=== PATIENT | female | born 1955 | race Caucasian/White ===

== ENCOUNTER 2019-01-09 10:30 | Inpatient (IN) | payer OTHER ==
[~2019-01-09] VITALS: Ht 149.9 cm; Wt 60.1 kg
[2019-01-23] VITALS (28 sets, daily range): BP systolic 91–138; BP diastolic 50–67; PULSE 54–89; RESP 11–20; Ht 149.9 cm; Wt 60.1 kg
[2019-01-23] MEDS ORDERED: HYDR25TA6 PO (09:11)
[2019-01-23] MEDS ORDERED: SIMV20TA PO (09:12)
[2019-01-23] MEDS ORDERED: PANT40TA3 PO (09:12)
[2019-01-23] MEDS ORDERED: MONT10TA24 PO (09:12)
[2019-01-23] MEDS ORDERED: ACETAMINOPHEN 1000MG/100ML IV 100 ML ONE (09:25)
--- NOTE | 2019-01-23 09:43 | PREAC ---
Date/Time of Note Date/Time of Note DATE: 01/23/19 TIME: 09:42 Anesthesia Eval and Record Evaluation Time Pre-Procedure Interview DATE: 01/23/19 TIME: 09:42 Age 63 Sex female NPO: 8 hrs Preoperative diagnosis Left Knee OA Planned procedure Left Total Knee Arthroplasty Past Medical History Past Medical History: Includes Cardio: HTN, Dyslipidemia Musculoskeletal: Osteoarthritis Surgery & Anesthesia Issues No known issue Meds Anticoagulation: No Beta Ramon within 24 hr: No Reason Beta Ramon not given: Pt. not on B-Ramon Reported Medications Montelukast Sodium* (Montelukast Sodium*) 10 Mg Tablet, 10 MG PO QHS, #30 TAB 01/23/19 Pantoprazole* (Protonix*) 40 Mg Tablet.dr, 40 MG PO DAILY, TAB 01/23/19 Simvastatin* (Zocor*) 20 Mg Tablet, 20 MG PO QHS, #30 TAB 01/23/19 Hydrochlorothiazide* (Hydrochlorothiazide*) 25 Mg Tab, 25 MG PO DAILY, #30 TAB 01/23/19 Current Medications Lactated Ringer's 1,000 ml @ 125 mls/hr Q8H IV ; Start 01/23/19 at 10:30; Stop 01/23/19 at 18:29 Cefazolin Sodium 50 ml @ 100 mls/hr PRE-OP ONCE IVPB ; Start 01/23/19 at 10:30; Stop 01/23/19 at 10:59 Tranexamic Acid 100 ml @ 220 mls/hr PRE-OP ONCE IVPB ; Start 01/23/19 at 10:30; Stop 01/23/19 at 10:57 Tranexamic Acid 100 ml @ 200 mls/hr INTRA-OP ONCE IVPB ; Start 01/23/19 at 10:30; Stop 01/23/19 at 10:59 Oxycodone HCl (Oxycontin) 10 mg PRE-OP ONCE PO Last administered on 01/23/19at 09:29; Admin Dose 10 MG; Start 01/23/19 at 10:30; Stop 01/23/19 at 10:31 Lansoprazole (Prevacid) 30 mg PRE-OP ONCE PO Last administered on 01/23/19at 09:29; Admin Dose 30 MG; Start 01/23/19 at 10:30; Stop 01/23/19 at 10:31 Ondansetron HCl (Zofran Inj) 4 mg PRE-OP ONCE IV Last administered on 01/23/19at 09:28; Admin Dose 4 MG; Start 01/23/19 at 10:30; Stop 01/23/19 at 10:31 Dexamethasone (Decadron) 8 mg PRE-OP ONCE IV Last administered on 01/23/19at 09:29; Admin Dose 8 MG; Start 01/23/19 at 10:30; Stop 01/23/19 at 10:31 Ropivacaine/ Morphine Sulfate/ Clonidine/ Epinephrine/ Ketorolac Tromethamine/ Vancomycin HCl/ Sodium Chloride INTRA-OP INJ ; Start 01/23/19 at 17:30; Stop 01/23/19 at 23:00 Acetaminophen 100 ml @ 400 mls/hr ONCE IVPB Last administered on 01/23/19at 09:30; Admin Dose 400 MLS/HR; Start 01/23/19 at 10:30; Stop 01/23/19 at 10:31 Meds reviewed: Yes Allergies Coded Allergies: No Known Allergy (Unverified , 01/23/19) Allergies Reviewed: Yes Labs/Studies Labs Reviewed: Reviewed by anesthesiologist test: N/A Studies: ECG (n/a), CXR (n/a) Pre-procedure Exam Last vitals Vital Signs Date Temp Pulse Resp B/P (MAP) Pulse Ox O2 O2 Flow FiO2 Time Delivery Rate 01/23/19 97.9 09:30 Airway: Adequate mouth opening, Adequate thyromental dist Mallampati: Mallampati II Teeth: Normal Lung: Normal Heart: Normal ASA Physical Status ASA physical status: 2 Emergency: None Planned Anesthetic General/MAC: ETT, LMA Neuraxial: Spinal Nerve block: Femoral (left) Planned Pain Management Sub-arachniod narcotics, Single shot nerve block, Parenteral pain med Pre-operative Attestations Prior to commencing anesthesia and surgery, the patient was re-evaluated, there was verification of: *The patient's identity *The results of appropriate recent lab work and preoperative vital signs *The above evaluation not changing prior to induction *Anesthetic plan, risk benefits, alternative and complications discussed with patient/family; questions answered; patient/family understands, accepts and wishes to proceed. FE WEISS MD Jan 23, 2019 09:43
[2019-01-23] MEDS ORDERED: MIDAZOLAM 1 MG/ML 2 ML INJ ONE (09:50)
[2019-01-23] MEDS ORDERED: PROPOFOL 100 ML ONE (09:50)
[2019-01-23] MEDS ORDERED: morphine SULFATE/PF (10 MG/10 ML) INJ ONE (09:50)
[2019-01-23] MEDS ORDERED: CEFAZOLIN 1 GM INJ ONE (09:50)
[2019-01-23] MEDS ORDERED: EPHEDrine 25 MG/5 ML SYG ONE (09:50)
[2019-01-23] MEDS ORDERED: ROPIVACAINE 0.5 % 30 ML VIAL ONE (09:51)
[2019-01-23] MEDS ORDERED: LANSOPRAZOLE 30 MG CAP PO ONE (10:30)
[2019-01-23] MEDS ORDERED: CEFAZOLIN 1 GM/50 ML (PMX) 50 ML IVPB ONE (10:30)
[2019-01-23] MEDS ORDERED: LACTATED RINGER'S 1,000 ML IV SCH (10:30)
[2019-01-23] MEDS ORDERED: DEXAMETHASONE 4 MG/ML 1 ML INJ IV ONE (10:30)
[2019-01-23] MEDS ORDERED: oxyCODONE (CR) 10 MG TAB [oxyCONTIN] PO ONE (10:30)
[2019-01-23] MEDS ORDERED: ACETAMINOPHEN 1000MG/100ML IV 100 ML IVPB SCH (10:30)
[2019-01-23] MEDS ORDERED: TRANEXAMIC ACID 1GM/100ML(PMX) 100 ML INTRA-OP X1 IVPB ONE (10:30)
[2019-01-23] MEDS ORDERED: TRANEXAMIC ACID 1GM/100ML(PMX) 100 ML PRE-OP X1 IVPB ONE (10:30)
[2019-01-23] MEDS ORDERED: ONDANSETRON 4 MG INJ IV ONE (10:30)
--- NOTE | 2019-01-23 11:07 | HPN ---
Date/Time of Note Date/Time of Note DATE: 01/23/19 TIME: 11:07 Interval H&P Admission Note Pt. seen H&P reviewed: No system changes ROOPA ANDRADE MD Jan 23, 2019 11:07
[2019-01-23] MEDS ORDERED: TRANEXAMIC ACID 1GM/100ML(PMX) 200 ML ONE (12:25)
[2019-01-23] MEDS ORDERED: POLYMYXIN B 500000 UNIT INJ ONE (12:33)
[2019-01-23] MEDS ORDERED: METOCLOPRAMIDE 10 MG INJ ONE (12:45)
[2019-01-23] MEDS ORDERED: DEXAMETHASONE 4 MG/ML 5 ML INJ ONE (12:45)
[2019-01-23] MEDS ORDERED: ONDANSETRON 4 MG INJ ONE (12:45)
[2019-01-23] MEDS ORDERED: KETOROLAC 30 MG INJ ONE (12:46)
[2019-01-23] MEDS ORDERED: NALOXONE (0.4 MG/ML) INJ IV PRN ×2 (13:00→14:30)
[2019-01-23] MEDS ORDERED: METOCLOPRAMIDE 10 MG INJ IV PRN (13:00)
[2019-01-23] MEDS ORDERED: NALBUPHINE HCL (10 MG/1 ML) INJ IV PRN (13:00)
[2019-01-23] MEDS ORDERED: OXYCODONE/ACETAMINOPHEN (5/325) TAB PO PRN (13:00)
[2019-01-23] MEDS ORDERED: LABETALOL HCL 20MG INJ IV PRN (13:00)
[2019-01-23] MEDS ORDERED: FENTAnyl 50 MCG/ML VIAL IV PRN ×2 (13:00)
[2019-01-23] MEDS ORDERED: HYDROmorphONE 0.5 MG/0.5 ML SYG IV PRN ×2 (13:00)
[2019-01-23] MEDS ORDERED: ACETAMINOPHEN 500 MG TAB PO PRN (13:00)
[2019-01-23] MEDS ORDERED: ALBUMIN HUMAN 5% 250 ML IV PRN (13:00)
[2019-01-23] MEDS ORDERED: ONDANSETRON 4 MG INJ IV PRN ×2 (13:00)
[2019-01-23] MEDS ORDERED: morphine 2 MG INJ IV PRN ×2 (13:00)
[2019-01-23] MEDS ORDERED: EPHEDrine 25 MG/5 ML SYG IV PRN (13:00)
[2019-01-23] MEDS ORDERED: DIPHENHYDRAMINE 50 MG INJ IV PRN ×2 (13:00)
[2019-01-23] MEDS ORDERED: HYDROCODONE/APAP (5/325) TAB PO PRN (13:00)
[2019-01-23] MEDS ORDERED: HYDROmorphONE 1 MG/5 ML IV SYRINGE IV PRN ×2 (13:00)
[2019-01-23] MEDS ORDERED: MEPERIDINE 25 MG INJ IV PRN (13:00)
[2019-01-23] MEDS ORDERED: KETOROLAC 30 MG INJ IV PRN (13:00)
[2019-01-23] MEDS ORDERED: ROCURONIUM 50 MG INJ ONE (13:04)
[2019-01-23] MEDS ORDERED: SUCCINYLCHOLINE CHLORIDE 100 MG/5 ML SYG IV ONE (13:04)
[2019-01-23] MEDS ORDERED: BACITRACIN 50000 UNITS INJ IRR ONE (13:04)
[2019-01-23] MEDS ORDERED: NEOSTIGMINE 3 MG/3 ML SYRINGE ONE (13:42)
[2019-01-23] MEDS ORDERED: GLYCOPYRROLATE 0.4 MG INJ ONE (13:42)
--- NOTE | 2019-01-23 14:02 | SIPON ---
Date/Time of Note Date/Time of Note DATE: 01/23/19 TIME: 14:01 Operative Report Preoperative Diagnosis Left Knee Osteoarthritis Postoperative Diagnosis Same Operation/Procedure Performed Left Total Knee Arthroplasty Surgeon Lisa Hummel MD veterinary assistant technician MADALYN Wagoner Anesthesia: spinal Estimated blood loss: other Transfusion Required none Specimen Bone Grafts/Implants none Complications none LISA HUMMEL MD Jan 23, 2019 14:02
--- NOTE | 2019-01-23 14:06 | OPR ---
Date/Time of Note Date/Time of Note DATE: 01/23/19 TIME: 14:02 Operative Report Free Text/Dictation DATE OF OPERATION: January 23, 2019 SURGEON: Roopa Andrade MD DECISION SCIENCE ANALYST: MADALYN Wagoner PREOPERATIVE DIAGNOSIS: Left knee osteoarthritis. POSTOPERATIVE DIAGNOSIS: Left knee osteoarthritis. PROCEDURES PERFORMED: Left total knee arthroplasty, CPT code 75824. ANESTHESIOLOGIST: Dr. Marshall ANESTHESIA: Spinal. ESTIMATED BLOOD LOSS: 300 mL. COMPLICATIONS: None. SPECIMENS: Resected bone. DISPOSITION: PACU in stable condition. TOURNIQUET TIME: 42 minutes at 250 mmHg. IMPLANT USED: Ulloa and Nephew size 2 Karen tibial baseplate, size 3 standard posterior stabilized Oxinium femur, size 11 high flexion polyethylene, size 35 mm patella. INDICATION FOR PROCEDURE: This is an 63-year-old female with end-stage osteoarthritis of the left knee who had failed nonoperative management. Risks, benefits, alternatives of surgical intervention were discussed with the patient and informed consent was obtained. The risks of surgery include but are not limited to infection, deep venous thrombosis, pulmonary embolism, damage to nerves and blood vessels, numbness around incision site, stiffness of knee, need for total knee manipulation under anesthesia, need for blood transfuion, heart attack, stroke, risks associated with anesthesia, implant loosening, wear of prosthesis, need for revision surgery, and . DESCRIPTION OF PROCEDURE: The patient was met in the preoperative suite. The correct operative site was confirmed and marked. The patient was then brought into operating room. After induction of anesthesia, the patient was placed in the supine position on the operating room table. A tourniquet was applied to left upper thigh. The left lower extremity was prepped and draped in the usual sterile fashion. Before starting, a timeout was taken to identify the correct operative site and confirm preoperative antibiotics consisting of 1 g of IV Ancef, along with 1 g of tranexamic acid were administered. At this point, the left leg was elevated and exsanguinated with an Esmarch and tourniquet was then insufflated for the above noted time. A midline incision was made and median parapatellar arthrotomy was then completed. The lateral patellar retinacular ligaments were released. A sleeve of tissue was released from the medial proximal tibia. The cruciate ligaments and the menisci were then excised. At this point, the custom distal femur cutting block was then pinned and 9.5 mm was resected from the distal femur. The 4-in-1 cutting block, size 3 was then placed. An jose wing was used to confirm that notching of the anterior cortex of the femur would not occur. The anterior and posterior condylar cuts were completed followed by the anterior and posterior chamfer cuts. The osteophytes were then removed with a rongeur. At this point, the tibia was subluxed anteriorly. Appropriate retractors were placed. The custom tibial cutting block was then pinned. The drop was used to ensure the correct alignment. Approximately 11.5 mm was resected off the lateral tibial plateau and 6 mm off the medial tibial plateau. Osteophytes were then removed. At this point, the flexion extension gaps were checked with a 9 mm gap raspberry checker and noted to be loose in both. Next, trial 3 standard femur was then pinned and the box cut was then completed. The tibia was then subluxed anteriorly and measured to size 2. The tibial tray was then pinned and a keel was then punched. The trial components were placed with a 11 mm polyethylene and noted to have full extension and greater than 120 degrees of flexion. The patella was then subluxed laterally and sized to 24 mm. Approximately, 9 mm was resected. The patellar was sized to a 35 mm. The button was placed and noted to have excellent patellar tracking. The trial components were removed. All bony surfaces were pulse lavaged and dried. The appropriate size components were then cemented and the knee was held in extension with a 11 mm trial polyethylene until the cement cured. Once the cement had cured, the trial polyethylene was removed and the appropriate size polyethylene was then placed. The tranexamic acid was redosed. The cocktail was then injected. The extensor mechanism was closed using #1 Stratafix and the subcutaneous tissue with 2-0 Vicryl and the skin with 4-0 Monocryl. Steri-Strips were applied along with a sterile dressing. There were no complications. The patient was transferred to PACU in stable condition. POSTOPERATIVE CARE: The patient will be weightbearing as tolerated. The pat ient will work with physical therapy, and will receive two additional doses of IV antibiotics along with aspirin 81 mg p.o. b.i.d. for 6 weeks. Upon discharge, patient will follow up in my office within 2 weeks postoperatively. ROOPA ANDRADE MD Jan 23, 2019 14:06
--- NOTE | 2019-01-23 14:19 | PAC ---
Date/Time of Note Date/Time of Note DATE: 01/23/19 TIME: 14:18 Post-Anesthesia Notes Post-Anesthesia Note Last documented vital signs Vital Signs Date Temp Pulse Resp B/P (MAP) Pulse Ox O2 O2 Flow FiO2 Time Delivery Rate 01/23/19 99.2 62 16 138/66 98 Room Air 14:16 (90) Activity: WNL Respiratory function: WNL Cardiovascular function: WNL Mental status: Baseline Pain reasonably controlled: Yes Hydration appropriate: Yes Nausea/Vomiting absent: Yes FE WEISS MD Jan 23, 2019 14:19
[2019-01-23] MEDS ORDERED: oxyCODONE 5 MG TAB PO PRN (14:30)
[2019-01-23] MEDS ORDERED: DOCUSATE SODIUM 100 MG CAP PO ONE (14:30)
[2019-01-23] MEDS ORDERED: NACL 0.9% 3 ML SYG IV SCH (14:30)
[2019-01-23] MEDS ORDERED: SENNA/DOCUSATE NA (8.6MG/50MG) TAB PO PRN (14:30)
[2019-01-23] MEDS ORDERED: NA PHOSPHATE/BIPHOS 133 ML ENEMA PR PRN (14:30)
[2019-01-23] MEDS ORDERED: KETOROLAC 15 MG INJ IV PRN (14:30)
[2019-01-23] MEDS ORDERED: MAGNESIUM HYDROXIDE 30ML CUP PO PRN (14:30)
[2019-01-23] MEDS ORDERED: BISACODYL 10 MG SUPP PR PRN (14:30)
[2019-01-23] MEDS: CEFAZOLIN 2 GM/50 ML (PMX) 50 ML IVPB SCH ×2 (14:54→23:44)
[2019-01-23] MEDS ORDERED: HIP PAIN COCKTAIL VANCO INJ SCH ×7 (17:30)
--- NOTE | 2019-01-23 18:19 | CONS ---
Assessment/Plan Assessment/Plan Hospital Course (Demo Recall) 63 yo female with OA, HLD, HTN who is POD0 for TKA. We have been consulted for medical-comanagement - Ok to continue home meds in post-operative period - DVT ppx - PT/OT - Diet as tolerated - Analgesia Consultation Date/Type/Reason Admit Date/Time Jan 23, 2019 at 08:01 Date/Time of Note DATE: 01/23/19 TIME: 18:17 Hx of Present Illness 63 yo female wtih h/o HLD and hypertension who is POD0 for TKA. We have been asked to follow for medication co-management Doing well currently. mild pain Constitutional: no complaints, improved Eyes: no complaints ENT: no complaints Respiratory: no complaints Cardiovascular: no complaints Gastrointestinal: no complaints Genitourinary: no complaints Musculoskeletal: no complaints Skin: no complaints Neurologic: no complaints Endocrine: no complaints Lymphatic: no complaints Psychological: no complaints, nl mood/affect Immunologic: no complaints Past Medical History Medical History: no pertinent history Home Meds Reported Medications Montelukast Sodium* (Montelukast Sodium*) 10 Mg Tablet, 10 MG PO QHS, #30 TAB 01/23/19 Pantoprazole* (Protonix*) 40 Mg Tablet.dr, 40 MG PO DAILY, TAB 01/23/19 Simvastatin* (Zocor*) 20 Mg Tablet, 20 MG PO QHS, #30 TAB 01/23/19 Hydrochlorothiazide* (Hydrochlorothiazide*) 25 Mg Tab, 25 MG PO DAILY, #30 TAB 01/23/19 Medications Current Medications Ropivacaine/ Morphine Sulfate/ Clonidine/ Epinephrine/ Ketorolac Tromethamine/ Vancomycin HCl/ Sodium Chloride INTRA-OP INJ ; Start 01/23/19 at 17:30; Stop 01/23/19 at 23:00 Hydromorphone HCl (Dilaudid) 0.2 mg PACU PRN IV MILD PAIN 1-3; Start 01/23/19 at 13:00; Stop 01/23/19 at 20:00 Hydromorphone HCl (Dilaudid) 0.4 mg PACU PRN IV MOD PAIN 4-6; Start 01/23/19 at 13:00; Stop 01/23/19 at 20:00 Fentanyl (Sublimaze) 25 mcg PACU ORDER PRN IV MILD PAIN 1-3; Start 01/23/19 at 13:00; Stop 01/23/19 at 20:00 Fentanyl (Sublimaze) 50 mcg PACU ORDER PRN IV MOD PAIN 4-6; Start 01/23/19 at 13:00; Stop 01/23/19 at 20:00 Oxycodone/ Acetaminophen (Percocet (5/ 325)) 1 tab PACU ORDER PRN PO .PAIN 1-5; Start 01/23/19 at 13:00; Stop 01/23/19 at 20:00 Ondansetron HCl (Zofran Inj) 4 mg PACU ORDER PRN IV NAUSEA/VOMITING; Start 01/23/19 at 13:00; Stop 01/23/19 at 20:00 Metoclopramide HCl (Reglan) 10 mg PACU ORDER PRN IV NAUSEA/VOMITING; Start 01/23/19 at 13:00; Stop 01/23/19 at 20:00 Labetalol HCl (Labetalol) 5 mg PACU ORDER PRN IV HIGH BLOOD PRESSURE; Start 01/23/19 at 13:00; Stop 01/24/19 at 12:00 Ephedrine Sulfate 5 mg PACU ORDER PRN IV BLOOD PRESSURE SUPPORT; Start 01/23/19 at 13:00; Stop 01/23/19 at 20:00 Albumin Human 250 ml @ 750 mls/hr PACU ORDER PRN IV BP SUPPORT; Start 01/23/19 at 13:00; Stop 01/23/19 at 20:00 Meperidine HCl (Demerol) 25 mg PACU ORDER PRN IV .RIGORS; Start 01/23/19 at 13:00; Stop 01/23/19 at 20:00 Diphenhydramine HCl (Benadryl) 25 mg PACU ORDER PRN IV .PRURITUS; Start 01/23/19 at 13:00; Stop 01/23/19 at 20:00 Hydromorphone HCl (Dilaudid) 0.2 mg Q2H PRN IV .PAIN 1-5; Start 01/23/19 at 13:00; Stop 01/24/19 at 12:00 Hydromorphone HCl (Dilaudid) 0.4 mg Q2H PRN IV .PAIN 6-10; Start 01/23/19 at 13:00; Stop 01/24/19 at 12:00 Morphine Sulfate (morphine) 2 mg Q2H PRN IV .PAIN 1-5; Start 01/23/19 at 13:00; Stop 01/24/19 at 12:00 Morphine Sulfate (morphine) 4 mg Q2H PRN IV .PAIN 6-10; Start 01/23/19 at 13:00; Stop 01/24/19 at 12:00 Ketorolac Tromethamine (Toradol) 30 mg Q6H PRN IV .PAIN 6-10; Start 01/23/19 at 13:00; Stop 01/24/19 at 12:00 Acetaminophen (Tylenol Tab) 500 mg Q4H PRN PO .PAIN 1-3; Start 01/23/19 at 13:00; Stop 01/24/19 at 12:00 Acetaminophen/ Hydrocodone Bitart ([place] (5/325)) 1 tab Q4H PRN PO .PAIN 4-6; Start 01/23/19 at 13:00; Stop 01/24/19 at 12:00 Diphenhydramine HCl (Benadryl) 25 mg Q4H PRN IV .PRURITUS; Start 01/23/19 at 13:00; Stop 01/24/19 at 12:00 Nalbuphine HCl (Nubain) 10 mg Q4H PRN IV .PRURITUS; Start 01/23/19 at 13:00; Stop 01/24/19 at 12:00 Ondansetron HCl (Zofran Inj) 4 mg Q6H PRN IV .NAUSEA/VOMITING; Start 01/23/19 at 13:00; Stop 01/24/19 at 12:00 Naloxone HCl (Narcan) 0.2 mg Q2M PRN IV .RESP RATE; Start 01/23/19 at 13:00; Stop 01/24/19 at 12:00 Miscellaneous Information (* Miscellaneous Pharmacy Order) DURAMORPH: 0.1 MG SPI... GIVEN NEURAXIAL XX ; Start 01/23/19 at 13:00 IV Flush (NS 3 ml) 3 ml PER PROTOCOL IV ; Start 01/23/19 at 14:30 Oxycodone HCl (Roxicodone) 5 mg Q4H PRN PO .PAIN; Start 01/23/19 at 14:30 Ketorolac Tromethamine (Toradol) 15 mg Q6H PRN IV .PAIN; Start 01/23/19 at 14:30 Ondansetron HCl (Zofran Inj) 4 mg Q4H PRN IV NAUSEA/VOMITING; Start 01/24/19 at 14:30 Cefazolin Sodium/ Dextrose 50 ml @ 100 mls/hr Q8H IVPB Last administered on 01/23/19at 14:54; Admin Dose 100 MLS/HR; Start 01/23/19 at 14:30; Stop 01/24/19 at 06:59 Celecoxib (Celebrex) 100 mg BID PO ; Start 01/24/19 at 09:00 Gabapentin (Neurontin) 100 mg TID PO ; Start 01/23/19 at 21:00 Pantoprazole (Protonix Tab) 40 mg DAILY@06 PO ; Start 01/25/19 at 06:00 Docusate Sodium (Colace) 200 mg BID PO ; Start 01/24/19 at 09:00; Stop 01/27/19 at 08:59 Simethicone (Mylicon) 80 mg TID PRN PO .GAS; Start 01/23/19 at 14:30 Senna/Docusate Sodium (Senokot-S) 2 tab BID PRN PO .CONSTIPATION; Start 01/23/19 at 14:30 Magnesium Hydroxide (Milk Of Mag) 30 ml HS PRN PO .CONSTIPATION; Start 01/23/19 at 14:30 Bisacodyl (Dulcolax Supp) 10 mg DAILY PRN RI .CONSTIPATION; Start 01/23/19 at 14:30 Sodium Biphosphate/ Sodium Phosphate (Fleet Enema) 133 ml DAILY PRN RI .CONSTIPATION; Start 01/23/19 at 14:30 Naloxone HCl (Narcan) 0.2 mg Q2M PRN IV .RESP RATE; Start 01/23/19 at 14:30 Aspirin (Halfprin) 81 mg BID PO ; Start 01/24/19 at 09:00 Hydrochlorothiazide (Hydrochlorothiazide) 25 mg DAILY PO ; Start 01/24/19 at 09:00; Status UNV Montelukast Sodium (Singulair) 10 mg QHS PO ; Start 01/23/19 at 21:00; Status UNV Pantoprazole (Protonix Tab) 40 mg DAILY PO ; Start 01/24/19 at 09:00; Status UNV Allergies: Coded Allergies: No Known Allergy (Unverified , 01/23/19) Past Surgical History Past Surgical Hx: no surgical history, other Family History Significant Family History: no pertinent family hx Social History Alcohol Use: none Smoking Status: Never smoker Drug Use: none Exam/Review of Systems Exam Vitals Vital Signs Date Temp Pulse Resp B/P (MAP) Pulse Ox O2 O2 Flow FiO2 Time Delivery Rate 01/23/19 97.7 66 18 118/60 99 Room Air 16:54 (79) 01/23/19 2.0 15:44 Constitutional: alert, oriented, well developed Psych: no complaints, nl mood/affect Head: normocephalic, atraumatic Eyes: nl conjunctiva, EOMI, nl lids, nl sclera, PERRL ENMT: nl external ears & nose, nl lips & teeth, nl nasal mucosa & septum Neck: supple, non-tender Respiratory: clear to auscultation, normal air movement Cardiovascular: regular rate and rhythm, nl pulses Gastrointestinal: soft, nl liver, spleen, non-tender Musculoskeletal: nl extremities to inspection, nl gait and stance Extremities: normal pulses 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, nl mental status, nl speech, nl strength Skin: nl turgor; No rash or lesions Lymph: nl lymph nodes Medications Medication Current Medications Ropivacaine/ Morphine Sulfate/ Clonidine/ Epinephrine/ Ketorolac Tromethamine/ Vancomycin HCl/ Sodium Chloride INTRA-OP INJ ; Start 01/23/19 at 17:30; Stop 01/23/19 at 23:00 Hydromorphone HCl (Dilaudid) 0.2 mg PACU PRN IV MILD PAIN 1-3; Start 01/23/19 at 13:00; Stop 01/23/19 at 20:00 Hydromorphone HCl (Dilaudid) 0.4 mg PACU PRN IV MOD PAIN 4-6; Start 01/23/19 at 13:00; Stop 01/23/19 at 20:00 Fentanyl (Sublimaze) 25 mcg PACU ORDER PRN IV MILD PAIN 1-3; Start 01/23/19 at 13:00; Stop 01/23/19 at 20:00 Fentanyl (Sublimaze) 50 mcg PACU ORDER PRN IV MOD PAIN 4-6; Start 01/23/19 at 13:00; Stop 01/23/19 at 20:00 Oxycodone/ Acetaminophen (Percocet (5/ 325)) 1 tab PACU ORDER PRN PO .PAIN 1-5; Start 01/23/19 at 13:00; Stop 01/23/19 at 20:00 Ondansetron HCl (Zofran Inj) 4 mg PACU ORDER PRN IV NAUSEA/VOMITING; Start 01/23/19 at 13:00; Stop 01/23/19 at 20:00 Metoclopramide HCl (Reglan) 10 mg PACU ORDER PRN IV NAUSEA/VOMITING; Start 01/23/19 at 13:00; Stop 01/23/19 at 20:00 Labetalol HCl (Labetalol) 5 mg PACU ORDER PRN IV HIGH BLOOD PRESSURE; Start 01/23/19 at 13:00; Stop 01/24/19 at 12:00 Ephedrine Sulfate 5 mg PACU ORDER PRN IV BLOOD PRESSURE SUPPORT; Start 01/23/19 at 13:00; Stop 01/23/19 at 20:00 Albumin Human 250 ml @ 750 mls/hr PACU ORDER PRN IV BP SUPPORT; Start 01/23/19 at 13:00; Stop 01/23/19 at 20:00 Meperidine HCl (Demerol) 25 mg PACU ORDER PRN IV .RIGORS; Start 01/23/19 at 13:00; Stop 01/23/19 at 20:00 Diphenhydramine HCl (Benadryl) 25 mg PACU ORDER PRN IV .PRURITUS; Start 01/23/19 at 13:00; Stop 01/23/19 at 20:00 Hydromorphone HCl (Dilaudid) 0.2 mg Q2H PRN IV .PAIN 1-5; Start 01/23/19 at 13:00; Stop 01/24/19 at 12:00 Hydromorphone HCl (Dilaudid) 0.4 mg Q2H PRN IV .PAIN 6-10; Start 01/23/19 at 13:00; Stop 01/24/19 at 12:00 Morphine Sulfate (morphine) 2 mg Q2H PRN IV .PAIN 1-5; Start 01/23/19 at 13:00; Stop 01/24/19 at 12:00 Morphine Sulfate (morphine) 4 mg Q2H PRN IV .PAIN 6-10; Start 01/23/19 at 13:00; Stop 01/24/19 at 12:00 Ketorolac Tromethamine (Toradol) 30 mg Q6H PRN IV .PAIN 6-10; Start 01/23/19 at 13:00; Stop 01/24/19 at 12:00 Acetaminophen (Tylenol Tab) 500 mg Q4H PRN PO .PAIN 1-3; Start 01/23/19 at 13:00; Stop 01/24/19 at 12:00 Acetaminophen/ Hydrocodone Bitart ([place] (5/325)) 1 tab Q4H PRN PO .PAIN 4-6; Start 01/23/19 at 13:00; Stop 01/24/19 at 12:00 Diphenhydramine HCl (Benadryl) 25 mg Q4H PRN IV .PRURITUS; Start 01/23/19 at 13:00; Stop 01/24/19 at 12:00 Nalbuphine HCl (Nubain) 10 mg Q4H PRN IV .PRURITUS; Start 01/23/19 at 13:00; Stop 01/24/19 at 12:00 Ondansetron HCl (Zofran Inj) 4 mg Q6H PRN IV .NAUSEA/VOMITING; Start 01/23/19 at 13:00; Stop 01/24/19 at 12:00 Naloxone HCl (Narcan) 0.2 mg Q2M PRN IV .RESP RATE; Start 01/23/19 at 13:00; Stop 01/24/19 at 12:00 Miscellaneous Information (* Miscellaneous Pharmacy Order) DURAMORPH: 0.1 MG SPI... GIVEN NEURAXIAL XX ; Start 01/23/19 at 13:00 IV Flush (NS 3 ml) 3 ml PER PROTOCOL IV ; Start 01/23/19 at 14:30 Oxycodone HCl (Roxicodone) 5 mg Q4H PRN PO .PAIN; Start 01/23/19 at 14:30 Ketorolac Tromethamine (Toradol) 15 mg Q6H PRN IV .PAIN; Start 01/23/19 at 14:30 Ondansetron HCl (Zofran Inj) 4 mg Q4H PRN IV NAUSEA/VOMITING; Start 01/24/19 at 14:30 Cefazolin Sodium/ Dextrose 50 ml @ 100 mls/hr Q8H IVPB Last administered on 01/23/19at 14:54; Admin Dose 100 MLS/HR; Start 01/23/19 at 14:30; Stop 01/24/19 at 06:59 Celecoxib (Celebrex) 100 mg BID PO ; Start 01/24/19 at 09:00 Gabapentin (Neurontin) 100 mg TID PO ; Start 01/23/19 at 21:00 Pantoprazole (Protonix Tab) 40 mg DAILY@06 PO ; Start 01/25/19 at 06:00 Docusate Sodium (Colace) 200 mg BID PO ; Start 01/24/19 at 09:00; Stop 01/27/19 at 08:59 Simethicone (Mylicon) 80 mg TID PRN PO .GAS; Start 01/23/19 at 14:30 Senna/Docusate Sodium (Senokot-S) 2 tab BID PRN PO .CONSTIPATION; Start 01/23/19 at 14:30 Magnesium Hydroxide (Milk Of Mag) 30 ml HS PRN PO .CONSTIPATION; Start 01/23/19 at 14:30 Bisacodyl (Dulcolax Supp) 10 mg DAILY PRN RI .CONSTIPATION; Start 01/23/19 at 14:30 Sodium Biphosphate/ Sodium Phosphate (Fleet Enema) 133 ml DAILY PRN RI .CONSTIPATION; Start 01/23/19 at 14:30 Naloxone HCl (Narcan) 0.2 mg Q2M PRN IV .RESP RATE; Start 01/23/19 at 14:30 Aspirin (Halfprin) 81 mg BID PO ; Start 01/24/19 at 09:00 Hydrochlorothiazide (Hydrochlorothiazide) 25 mg DAILY PO ; Start 01/24/19 at 09:00; Status UNV Montelukast Sodium (Singulair) 10 mg QHS PO ; Start 01/23/19 at 21:00; Status UNV Pantoprazole (Protonix Tab) 40 mg DAILY PO ; Start 01/24/19 at 09:00; Status UNV KAMRAN ALONSO MD Jan 23, 2019 18:19
[2019-01-23] MEDS: MONTELUKAST 10 MG TAB PO SCH (20:29)
[2019-01-23] MEDS: GABAPENTIN 100 MG CAP PO SCH (20:29)
[2019-01-24 00:45] VITALS: BP 99/55; PULSE 63; RESP 17
[2019-01-24] MEDS: CEFAZOLIN 2 GM/50 ML (PMX) 50 ML IVPB SCH (06:24)
[2019-01-24 07:55] VITALS: BP 94/53; PULSE 50; RESP 18
[2019-01-24] MEDS ORDERED: PANTOPRAZOLE (EC) 40 MG TAB PO SCH (09:00)
[2019-01-24] MEDS ORDERED: HYDROCHLOROTHIAZIDE 25 MG TAB PO SCH (09:00)
[2019-01-24] MEDS: CELECOXIB 100 MG CAP PO SCH ×2 (09:08→20:35)
[2019-01-24] MEDS: DOCUSATE SODIUM 100 MG CAP PO SCH ×2 (09:08→20:35)
[2019-01-24] MEDS: GABAPENTIN 100 MG CAP PO SCH ×3 (09:08→20:35)
[2019-01-24] MEDS: ASPIRIN (EC) 81 MG TAB PO SCH ×2 (09:08→20:35)
[2019-01-24] MEDS ORDERED: POTASSIUM CHLORIDE (SR) 20 MEQ TAB PO STA (10:13)
[2019-01-24] MEDS ORDERED: ONDANSETRON 4 MG INJ IV PRN (14:30)
[2019-01-24 14:46] VITALS: BP 100/56; PULSE 78; RESP 18
[2019-01-24] MEDS ORDERED: ASPI-817 PO ×2 (17:24→17:25)
[2019-01-24 19:55] VITALS: BP 130/62; PULSE 82; RESP 18
[2019-01-24] MEDS: MONTELUKAST 10 MG TAB PO SCH (20:34)
[2019-01-25] MEDS ORDERED: PANTOPRAZOLE (EC) 40 MG TAB PO SCH (06:00)
== END 2019-01-24 21:00 | disposition home health service (06) | DRG 470 ==
LOC: REC 01-23 08:01 → MS1 01-23 15:55
PROVIDERS: ADMIT Orthopaedic Surgery Adult Reconstructive Orthopaedic Surgery; ATTEND Orthopaedic Surgery Adult Reconstructive Orthopaedic Surgery
PROC: 0SRD069 Replacement of Left Knee Joint with Oxidized Zirconium on Polyethylene Synthetic Substitute, Cemented, Open Approach (ICD-10-PCS; principal; 2019-01-23 10:30)
DX: M17.12 Unilateral primary osteoarthritis, left knee (principal); I10 Essential (primary) hypertension; E78.5 Hyperlipidemia, unspecified
CPT/HCPCS: 73560; 80048; 85025; 86850; 86900; 86901; 87081; 88304; 88311; 97116; 97161; 97530; C1713; J0131; J0171; J0690; J0735; J1100; J1885; J2250; J2274; J2405; J2710; J2765; J2795; J3370; J7120